=== PATIENT | female | born 1925 | race Caucasian/White ===

== ENCOUNTER → 2016-07-27 | Outpatient (CLI) | payer MEDICARE, OTHER | END | disposition home or self-care (01) | LOC: NC 09:24 | PROVIDERS: ATTEND Family Medicine | DX: I10 Essential (primary) hypertension (principal); D64.9 Anemia, unspecified; C85.90 Non-Hodgkin lymphoma, unspecified, unspecified site ==

== ENCOUNTER → 2016-08-08 | Outpatient (CLI) | payer MEDICARE, OTHER ==
--- NOTE | 2016-08-08 11:36 | CT ---
EXAM DESCRIPTION: Chest w/Contrast CLINICAL HISTORY: LYMPHOMA COMPARISON: Chest x-ray dated 15 Sep 2013 TECHNIQUE: Transaxial images were obtained during injector demonstrated intravenous contrast media. Sagittal and coronal reconstruction was performed. FINDINGS: The thyroid is normal in appearance. No pathologic axillary adenopathy is observed. No hilar or mediastinal adenopathy is seen. A large hiatus hernia is observed. No pleural fluid is seen. No adrenal masses are detected. The lungs are free of acute infiltrate or mass. Mild degenerative changes are seen in the thoracic spine. Diffuse osteopenia is observed. IMPRESSION: 1. A large hiatus hernia is observed. 2. No adenopathy is observed in the chest. Electronically signed by: Sameer Santillan MD 08/08/2016 11:34 AM CDT
--- NOTE | 2016-08-13 07:51 | CT ---
EXAM DESCRIPTION: Abdomen/Pelvis w/Contrast CLINICAL HISTORY: LYMPHOMA COMPARISON: 31 December 2015 TECHNIQUE: Transaxial images were obtained without oral contrast media and during injector demonstrated intravenous contrast media. Sagittal and coronal reconstruction was performed. FINDINGS: A hiatus hernia is observed. 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 The liver and spleen are unremarkable. No biliary ductal dilatation is observed. The gallbladder is normal in appearance. No adrenal masses are detected. The pancreas is normal in appearance. Imaging of the kidneys reveals no evidence of hydronephrosis mass or calcification. 2 cysts are identified in the right kidney, one in the midpole measuring 2.78 cm in diameter and the larger in the lower pole the right kidney measuring 5.43cm in greatest diameter. Tiny cysts are also observed on the right. Calcific atherosclerotic changes observed in the abdominal aorta without evidence of aneurysmal dilatation. No retroperitoneal adenopathy is detected. Some diverticulosis of the colon is observed without evidence of diverticulitis. No free fluid is observed. The patient is post hysterectomy. Degenerative changes are observed in the lower lumbar spine. A periumbilical hernia containing fat is observed. IMPRESSION: 1. A large hiatus hernia is observed. 2. No adenopathy is observed. 3. Uncomplicated diverticulosis of the colon. 4. Hysterectomy. 5. Small periumbilical hernia containing fat. Electronically signed by: Sameer Santillan MD 08/13/2016 7:50 AM CDT
== END | disposition home or self-care (01) ==
LOC: CT 07:57
DX: C85.93 Non-Hodgkin lymphoma, unspecified, intra-abdominal lymph nodes (principal)

== ENCOUNTER → 2017-02-20 | Outpatient (CLI) | payer MEDICARE, OTHER | END | disposition home or self-care (01) | LOC: NC 09:24 | PROVIDERS: ATTEND Family Medicine | DX: C85.90 Non-Hodgkin lymphoma, unspecified, unspecified site (principal); D64.9 Anemia, unspecified; I11.9 Hypertensive heart disease without heart failure ==